=== PATIENT | male | born 1955 | race Caucasian/White ===

== ENCOUNTER 2016-06-09 21:20 | Day surgery (SDC) | payer BC ==
[~2016-06-09] VITALS: Ht 195.6 cm; Wt 109.0 kg
[~2016-06-09 21:20] MED LIST: ASPI-586 PO; DOXA4TAB PO; DOXA4TAB2 PO; FENO145T20 PO; GLIP10TA13 PO; HYDR-757 PO; LIRA0.6P SQ; LIRA0.6P3 SQ; LISI40TA PO; METF1000 PO; METF500T4 PO; MULT-35 PO; PHEN28OI6 RC; PRAV40TA2 PO; TRAM1TAB7 PO
[2016-06-09 21:30] VITALS: BP 124/73
[2016-06-09] MEDS ORDERED: ENOXAPARIN 40 MG/0.4 ML (LOVENOX) SYR SC ONE (22:45)
[2016-06-09] MEDS ORDERED: NS IV 1000 ML 1,000 ML IV SCH (23:00)
[2016-06-10] VITALS (9 sets, daily range): BP systolic 99–127; BP diastolic 57–77
[2016-06-10] MEDS ORDERED: ACETAMINOPHEN 325 MG TABLET/CAPLET (TYLENOL) PO PRN (01:15)
[2016-06-10] MEDS ORDERED: TEMAZEPAM 15 MG (RESTORIL) CAP PO PRN (01:15)
[2016-06-10] MEDS ORDERED: BENZONATATE 100 MG (TESSALON) CAPSULE PO PRN ×2 (01:15→10:15)
[2016-06-10] MEDS ORDERED: PATIENT MAY USE OWN MEDS, ALL MC SCH (01:15)
[2016-06-10 03:52] LABS: BASOPHILS % (AUTO) 1 % (0-10); EOSINOPHILS # (AUTO) 0.2 10^3/uL (0.0-0.3); EOSINOPHILS % (AUTO) 3 % (0-10); LYMPHOCYTES # (AUTO) 1.5 X 10^3 (1.0-4.0); LYMPHOCYTES % (AUTO) 24 % (12-44); MEAN CORPUSCULAR HEMOGLOBIN 28 PG (25-34); MEAN CORPUSCULAR HGB CONC 34 G/DL (32-36); MEAN CORPUSCULAR VOLUME 83 FL (80-99); MEAN PLATELET VOLUME 13.2 FL (7.4-10.4); MONOCYTES # (AUTO) 0.6 X 10^3 (0.0-1.0); MONOCYTES % (AUTO) 10 % (0-12); NEUTROPHILS # (AUTO) 3.9 X 10^3 (1.8-7.8); NEUTROPHILS % (AUTO) 62 % (42-75); PLATELET COUNT 138 10^3/uL (130-400); RED BLOOD COUNT 5.13 10^6/uL (4.35-5.85); RED CELL DISTRIBUTION WIDTH 13.5 % (10.0-14.5); WHITE BLOOD COUNT 6.3 10^3/uL (4.3-11.0)
[2016-06-10 04:12] LABS: ALANINE AMINOTRANSFERASE 20 U/L (0-55); ALBUMIN 3.9 G/DL (3.2-4.5); ANION GAP 10 MMOL/L (5-14); ASPARTATE AMINO TRANSFERASE 19 U/L (5-34); BILIRUBIN,TOTAL 0.3 MG/DL (0.1-1.0); BLOOD UREA NITROGEN 18 MG/DL (7-18); BUN/CREATININE RATIO 18; CALCIUM 9.3 MG/DL (8.5-10.1); CARBON DIOXIDE 21 MMOL/L (21-32); CHLORIDE 109 MMOL/L (98-107); CHOLESTEROL 111 MG/DL (< 200); CREATININE SERUM 0.98 MG/DL (0.60-1.30); DIRECT LDL 62 MG/DL (1-129); GFR ESTIMATED > 60; GLUCOSE 125 MG/DL (70-105); MAGNESIUM 1.6 MG/DL (1.8-2.4); POTASSIUM 4.5 MMOL/L (3.6-5.0); SODIUM 140 MMOL/L (135-145); TOTAL PROTEIN 6.5 G/DL (6.4-8.2); TRIGLYCERIDES 202 MG/DL (<150); VLDL CHOLESTEROL 40 MG/DL (5-40)
[2016-06-10 04:32] LABS: THYROID STIMULATING HORMONE 2.77 UIU/ML (0.35-4.94)
[2016-06-10] MEDS: inSUlin (REGULAR) HUMAN 1 UNIT/0.01 ML (CHARGE PER UNIT) SC SCH ×3 (05:03→16:00)
[2016-06-10] MEDS ORDERED: BENZ-13 PO (06:34)
[2016-06-10] MEDS ORDERED: ASPI-586 PO (06:34)
[2016-06-10] MEDS ORDERED: metFORMIN 500 MG (GLUCOPHAGE) TAB PO SCH ×2 (07:00→17:00)
[2016-06-10] MEDS ORDERED: doxAzosin 4 MG (CARDURA) TAB PO SCH ×2 (09:00)
[2016-06-10] MEDS ORDERED: lisINopril 20 MG (ZESTRIL) TAB PO SCH (09:00)
[2016-06-10] MEDS ORDERED: LISINOPRIL 40 MG TAB PO SCH (09:00)
[2016-06-10] MEDS ORDERED: glipiZIDE 5 MG (GLUCOTROL) TAB PO ONE (09:00)
--- NOTE | 2016-06-10 11:24 | Cardiology History & Physical ---
HPI-Cardiology Cardiology H&P Date of Admission Primary Care Physician JAYDEN Shahid Attending Physician Tess Lincoln MD FACP [facility] Consulting Physician ANTHONY CC: Chest and jaw discomfort HPI: 61 yo man with multiple cor risk factors who had an episode of bilat jaw discomfort and some chest tightness lasting 35-40 min yesterday. Has had 3-4 such episodes in the past one year. These are not related to exertion. Chest discomfort does not radiate other than that described above. It is sometimes associated with cold sweats. Discomfort in chest is mild but jaw discomfort was mod to severe. These do not have any particular aggravating or relieving factors. He went to [place] yesterday where there was concern regarding ACS and he was transferred to this hosp. Denies leg swelling or syncope Review of Systems-Cardiology Review of Systems Constitutional: No malaise, No tiredness, No weight loss, No weight gain Eyes: No vision change Ears/Nose/Throat: chronic hearing loss, No ear discharge, No nasal drainage, No recent hearing loss Respiratory: As described under HPI, No shortness of breath, No SOB with excertion Cardiovascular: As described under HPI Gastrointestinal: No constipation, No diarrhea, No nausea, No vomiting Genitourinary: No dysuria, No hematuria, No urine frequency changes Musculoskeletal: back pain Skin: No rash, No ulcerations Psychiatric/Neurological: No focal weakness, No seizure, No syncope Hematologic: No bleeding abnormalities [id number] Hx Patient Social History Alcohol Use: Denies Use Recreational Drug Use: No Smoking Status: Former Smoker Recent Foreign Travel: No Recent Infectious Disease Expo: No Physical Abuse Screen: No Sexual Abuse: No Immunizations Up To Date Date of Pneumonia Vaccine: Jan 04, 2014 Date of Influenza Vaccine: Dec 20, 2015 Past Medical History PMH As described under Assessment. Family Medical History Family History: Congenital heart disease G8 SISTER IN CHILDBIRTH 19 MOTHER Diabetes mellitus G8 SISTER Hypertension G8 SISTER LUNG CANCER 19 FATHER Allergies and Home Medications Allergies Coded Allergies: codeine (Verified Allergy, Intermediate, CONFUSION, 01/05/16) Home Medications Aspirin 81 Mg Tablet.dr, 81 MG PO HS, (Reported) Benzonatate 100 Mg Capsule, 100 MG PO TID PRN for COUGH, (Reported) Doxazosin Mesylate 4 Mg Tablet, 4 MG PO DAILY, (Reported) Fenofibrate Nanocrystallized 145 Mg Tablet, 145 MG PO DAILY, (Reported) Glipizide 10 Mg Tablet, 10 MG PO BID, (Reported) Liraglutide 0.6 Mg/0.1 Ml Pen.injctr, 1.8 MG SQ HS, (Reported) Lisinopril 40 Mg Tablet, 40 MG PO BID, (Reported) Metformin HCl 500 Mg Tablet, 500 MG PO BID, (Reported) Multivitamin 1 Each Tablet, 1 EACH PO DAILY, (Reported) Phenyleph/Mineral Oil/Petrolat 28 Gm Oint.appl, RC TID PRN for HEMORRHOIDS, ( Reported) Pravastatin Sodium 40 Mg Tablet, 40 MG PO HS, (Reported) TAKES 1 & 1/2 OF A (40 MG) TABLET Physical Exam-Cardiology Physical Exam Vital Signs/I&O Vital Sign - Last 12Hours 06/10/16 06/10/16 06/10/16 06/10/16 00:00 01:50 04:00 07:00 Temp 98.2 98.6 Pulse 60 66 62 65 Resp 15 16 B/P (MAP) 100/57 107/77 Pulse Ox 92 97 O2 Delivery Room Air Room Air 06/10/16 06/10/16 08:25 09:00 Temp 97.6 Pulse Ox 96 O2 Delivery Room Air Capillary Refill : Constitutional: AAO x 3, well-developed, well-nourished HEENT: oral hygience is good, No xanthelasmas are seen Neck: No carotid bruit, carotid pulses are 2 + bilaterally, with good upstrokes Respiratory: No accessory muscle use, lungs clear to percussion, lungs clear to auscultation Cardiovascular: regular rate-rhythm, S1 and S2, systolic murmur (faint MATT at card base) Gastrointestinal: No tender, soft, No guarding, No rebound, audible bowel sounds Extremities: No clubbing, No cyanosis, No significant edema Neurologic/Psychiatric: oriented x 3, grossly intact, power is 5/5 both on sides Skin: No rash on exposed areas, No ulcerations on exposed areas Data Review Labs Laboratory Tests 06/09/16 22:50: Troponin I < 0.30 06/10/16 03:20: White Blood Count 6.3, Red Blood Count 5.13, Hemoglobin 14.5, Hematocrit 43, Mean Corpuscular Volume 83, Mean Corpuscular Hemoglobin 28, Mean Corpuscular Hemoglobin Concent 34, Red Cell Distribution Width 13.5, Platelet Count 138, Mean Platelet Volume 13.2H, Neutrophils (%) (Auto) 62, Lymphocytes (%) (Auto) 24 , Monocytes (%) (Auto) 10, Eosinophils (%) (Auto) 3, Basophils (%) (Auto) 1, Neutrophils # (Auto) 3.9, Lymphocytes # (Auto) 1.5, Monocytes # (Auto) 0.6, Eosinophils # (Auto) 0.2, Basophils # (Auto) 0.0, Sodium Level 140, Potassium Level 4.5, Chloride Level 109H, Carbon Dioxide Level 21, Anion Gap 10, Blood Urea Nitrogen 18, Creatinine 0.98, Estimat Glomerular Filtration Rate > 60, BUN/ Creatinine Ratio 18, Glucose Level 125H, Calcium Level 9.3, Magnesium Level 1.6L , Total Bilirubin 0.3, Aspartate Amino Transf (AST/SGOT) 19, Alanine Aminotransferase (ALT/SGPT) 20, Alkaline Phosphatase 52, Total Protein 6.5, Albumin 3.9, Triglycerides Level 202H, Cholesterol Level 111, LDL Cholesterol Direct 62, VLDL Cholesterol 40, HDL Cholesterol 20L, Thyroid Stimulating Hormone (TSH) 2.77 06/10/16 10:56: Glucometer 152H Laboratory Tests 06/10/16 03:20 A/P-Cardiology Assessment/Admission Diagnosis * Chest discomfort suggestive of unstable angina * DM II * Hypertension * Hyperlipidemia * Elevated BMI of approx 29 * History of tobacco use (quit in 1991) * Radical prostatectomy in 2015 for prostate, followed by Dr King Discussion and Recomendations * Given symptoms of unstable angina in the presence of multiple risk factors, card cath appear appropriate * I discussed with him the rationale and risks and benefits and alternatives and potential complications of card cath and possible ad hoc cor intervention. He understands and provides informed consent * Further recs to be based on results of cath * Cor risk factor modification reviewed and recommended. Questions answered Clinical Quality Measures DVT/VTE Risk/Contraindication: Risk Factor Score Per Nursin RFS Level Per Nursing on Admit: 2=Moderate TESS LINCOLN MD FACP [facility] Jun 10, 2016 11:24
[2016-06-10] MEDS ORDERED: LIDOCAINE 1% INJ 20 ML (XYLOCAINE) VIAL ONE (12:10)
[2016-06-10] MEDS ORDERED: HEParin (CATH LAB) 2,000 ML IV ONE (12:10)
[2016-06-10] MEDS ORDERED: NITROGLYCERIN DRIP 25 MG/D5W 0 ML IV ONE (12:10)
[2016-06-10] MEDS ORDERED: MIDAZOLAM 5 MG/5 ML (VERSED) VIAL ONE (12:10)
[2016-06-10] MEDS ORDERED: diphenhydrAMINE 50 MG/ML INJ (BENADRYL) ONE (12:10)
[2016-06-10] MEDS ORDERED: NS IV 1000 ML 0 ML ONE (12:10)
[2016-06-10] MEDS ORDERED: fentaNYL INJECTION 100 MCG/2 ML AMP ONE (12:10)
[2016-06-10] MEDS ORDERED: NS IV 1000 ML 1,000 ML IV SCH (13:35)
--- NOTE | 2016-06-10 13:35 | Cardiac Procedure Note-CS/ASA ---
Pre-Procedure Note Pre-Op Procedure Note H&P Reviewed The H&P was reviewed, patient examined and no changes noted. Date H&P Reviewed: Jun 10, 2016 Time H&P Reviewed: 11:30 Conscious Sedation Pre-Proced Time Reviewed: 11:30 ASA Class: 3 Airway Mallampati Classification: ([place] appropriate class) I. II. III, IV Lungs Heart ASA score ASA 1: a normal healthy patient ASA 2: a patient with a mild systemic disease (mid diabetes, controlled hypertension, obesity ASA 3: a patient with a severe systemic disease that limits activity (angina , COPD, prior Myocardial infarction) ASA 4: a patient with an incapacitating disease that is a constant threat to life (CHF, renal failure) ASA 5: a moribund patient not expected to survive 24 hrs. (ruptured aneurysm) ASA 6: a declared brain patient whose organs are being harvested. For emergent operations, add the letter E after the classification Grade 3 Note The patient is an appropriate candidate to undergo the planned procedure, sedation, and anesthesia. The patient immediately re-assessed prior to indication. WILLIAM BOLTON MD FACP [facility] Jun 10, 2016 13:35
[2016-06-10] MEDS ORDERED: ASPI-999 PO (13:41)
[2016-06-10] MEDS ORDERED: LISI40TA PO (13:41)
--- NOTE | 2016-06-10 13:42 | Discharge Inst-Post CATH ---
Discharge Inst-CATH Post Cardiac Cath D/C Inst Follow Up/Plan Follow up with Dr Lincoln in 4 weeks CARDIAC CATH DISCHARGE INSTRUCTIONS *Hold Metformin for 48 hours post heart cath. ACTIVITY * Go Home directly and rest. * Limit activity of the leg (or wrist if it was used) for 7 days including aerobics, swimming, jogging, bicycling, etc. * Restrict stair-climbing for 7 days if possible, if not, climb up with your non -cath leg, then bring together on the same step. * Avoid lifting, pushing, pulling or excessive movement of the affected extremity for 7 days. * Customary sexual activity may be resumed after 2 days-use caution not to use a position that strains or causes pain to the affected extremity. * No driving for 24 hours. * NO SMOKING. * Avoid straining for bowel movements for 7 days. * Gentle walking on level ground is allowed. * Returning to work will depend on the type of procedure and the results. Your doctor will discuss this with you. CALL YOUR DOCTOR FOR ANY OF THE FOLLOWING: *If bleeding from the puncture site occurs- Apply gentle pressure to site with clean cloth and call your doctor or EMS. * If a knot or lump forms under the skin, increases in size, or causes pain. * If bruising appears to be worsening or moving further down your leg instead of disappearing. * Temperature above 101 F. CARE OF YOUR GROIN INCISION; * Bruising or purple discoloration of the skin near the puncture site is common. * You may shower only, no bathtub bathing for 5 days. Be careful to avoid slipping as your leg may feel stiff. * If a closure device was used on your femoral artery, please see the attached guide regarding care of the device and your leg. * REMOVE the dressing from your groin the next day after your procedure in the shower. CARE OF YOUR WRIST INCISION; * Bruising or purple discoloration of the skin near the puncture site is common. * You may shower. * DO NOT submerge wrist. * Remove dressing in 24 hours. WILLIAM LINCOLN MD FACP [facility] Jun 10, 2016 13:42
--- NOTE | 2016-06-10 13:43 | Discharge Inst-Cardiology ---
Discharge Inst-Cardiac Discharge Medications New Medications: Aspirin (Aspirin) 81 Mg Tab.chew 81 MG PO DAILY, #90 TAB 3 Refills Lisinopril (Lisinopril) 40 Mg Tablet 40 MG PO DAILY, #90 TAB 3 Refills Continued Medications: Benzonatate (Tessalon Perle) 100 Mg Capsule 100 MG PO TID PRN for COUGH, CAP Doxazosin Mesylate (Doxazosin Mesylate) 4 Mg Tablet 4 MG PO DAILY Fenofibrate Nanocrystallized (Fenofibrate) 145 Mg Tablet 145 MG PO DAILY, TAB Glipizide (Glipizide) 10 Mg Tablet 10 MG PO BID, TAB Liraglutide (Victoza 3-Tawanda) 0.6 Mg/0.1 Ml Pen.injctr 1.8 MG SQ HS Multivitamin (Daily Multiple Vitamin) 1 Each Tablet 1 EACH PO DAILY, TAB Phenyleph/Mineral Oil/Petrolat (Preparation H Ointment) 28 Gm Oint.appl RC TID PRN for HEMORRHOIDS, TUBE Pravastatin Sodium (Pravastatin Sodium) 40 Mg Tablet 40 MG PO HS, TAB TAKES 1 & 1/2 OF A (40 MG) TABLET Discontinued Medications: Aspirin (Aspir 81) 81 Mg Tablet.dr 81 MG PO HS, TAB Lisinopril (Lisinopril) 40 Mg Tablet 40 MG PO BID, TAB Metformin HCl (Metformin HCl) 500 Mg Tablet 500 MG PO BID Patient Instructions Patient Instructions: Hold METFORMIN until the evening of 06/12/16, then start in previous home dose WILLIAM BOLTON MD FACP [facility] Jun 10, 2016 13:43
[2016-06-10] MEDS ORDERED: PATIENT MAY USE OWN MEDS, ALL PO SCH (13:45)
--- NOTE | 2016-06-10 13:46 | Cardiology Discharge Summary ---
Diagnosis/Chief Complaint Date of Admission Jun 09, 2016 at 21:19 Date of Discharge 06/10/16 Admission Diagnosis * Chest discomfort suggestive of unstable angina * DM II * Hypertension * Hyperlipidemia * Elevated BMI of approx 29 * History of tobacco use (quit in 1991) * Radical prostatectomy in 2015 for prostate, followed by Dr King Final/Discharge Diagnosis * Chest and jaw discomfort, non-cardiac, currently stable * Card cath of 06/10/16 showed mild CAD, low-normal LVEDP, LVEF 60-65%, no significant MR, no evidence of thoracic aortic dissection or aneurysm * DM II * Hypertension * Hyperlipidemia * Elevated BMI of approx 29 * History of tobacco use (quit in 1991) * Radical prostatectomy in 2016 for prostate, followed by Dr King Chief Complaint/HPI Chief Complaint/HPI CC: Chest and jaw discomfort HPI: 61 yo man with multiple cor risk factors who had an episode of bilat jaw discomfort and some chest tightness lasting 35-40 min yesterday. Has had 3-4 such episodes in the past one year. These are not related to exertion. Chest discomfort does not radiate other than that described above. It is sometimes associated with cold sweats. Discomfort in chest is mild but jaw discomfort was mod to severe. These do not have any particular aggravating or relieving factors. He went to [place] yesterday where there was concern regarding ACS and he was transferred to this hosp. Denies leg swelling or syncope Discharge Summary Procedures Echo and card cath on 06/10/16 Hospital Course Pending Labs Laboratory Tests 06/10/16 10:56: Glucometer 152 Discussion & Recommendations Dicharge Diet: ADA Diet (1800 kCal) Home Medications Reviewed patient Home Medication Reconciliation Form Discharge Home Medications: Reviewed and agree with Discharge Medication list on patient's Discharge Instruction sheet Instructions to patient/family Follow up with Dr Lincoln in 4 weeks Clinical Quality Measures DVT/VTE Risk/Contraindication: Risk Factor Score Per Nursin RFS Level Per Nursing on Admit: 2=Moderate WILLIAM LINCOLN MD FACP [facility]AC [facility] Jun 10, 2016 13:46
[2016-06-10] MEDS ORDERED: ASPIRIN E.C. 81 MG (ECOTRIN) TAB PO SCH (21:00)
[2016-06-10] MEDS ORDERED: ASPIRIN 81 MG CHEW (CHILDREN'S ASA) PO SCH (21:00)
[2016-06-10] MEDS ORDERED: ENOXAPARIN 40 MG/0.4 ML (LOVENOX) SYR SC SCH (21:00)
--- NOTE | 2016-06-11 12:57 | ECHOCARDIOGRAPHY REPORT ---
PROCEDURE PHYSICIAN: WILLIAM LINCOLN DATE OF PROCEDURE: 06/10/2016 TWO DIMENSIONAL ECHOCARDIOGRAM REPORT PRIMARY PHYSICIAN: JAYDEN Nash OTHER PHYSICIAN: REFERRING PHYSICIAN: ORDERING PHYSICIAN: Dr. Lincoln INDICATION FOR THE PROCEDURE: Chest pain. MEASUREMENTS DERIVED VALUES LV DIAMETER (LAX) NORMALS NORMALS Diastolic 5.3 (3.6-5.2) Eject. Fract. (60%+/-6%) Systolic (2.3-3.9) Diastolic Vol. % Shortening (0.22-0.42) Systolic Vol. Aortic Root 3.7 IVS THICKNESS Diastolic 1.1 (0.6-1.1) LVPW THICKNESS Diastolic 1. (0.6-1.1) LA DIAMETER Systolic 3.8 (2.1-3.7) DESCRIPTION: Two-dimensional echocardiography shows normal global left ventricular systolic function without any distinct regional wall motion abnormality. The aortic, mitral and tricuspid valve leaflets show good leaflet excursion. Doppler imaging shows trivial tricuspid regurgitation. Pulmonary artery systolic pressure is estimated to be approximately 25 mmHg. There is no Doppler evidence of any significant valvular stenosis. Mitral inflow is suggestive of grade I diastolic dysfunction of the left ventricle. There is no evidence of any significant intracardiac shunt on this transthoracic echocardiographic study. Inferior vena cava is of normal size and exhibits normal inspiratory collapse. CONCLUSION: 1. Normal global left ventricular systolic function and ejection fraction of approximately 65%. 2. Trivial tricuspid regurgitation. 3. Pulmonary artery systolic pressure is estimated to be approximately 25 mmHg. 4. No evidence of any significant valvular stenosis. 5. Mild diastolic dysfunction of the left ventricle is suggested on this study. Job ID: [id number] Dictated Date: 06/10/2016 11:48:18 Manager Medicare Marketing Date: 06/11/2016 12:51:28 / kisha
--- NOTE | 2016-06-11 14:01 | CARDIAC CATHETERIZATION ---
PROCEDURE PHYSICIAN: WILLIAM BOLTON DATE OF PROCEDURE: 06/10/2016 Evert Quintana is a 61-year-old gentleman with multiple coronary disease risk factors who was hospitalized with symptoms of unstable angina. Cardiac catheterization was carried out after having obtained an informed consent. He was brought to the cardiac catheterization laboratory in a fasting state. The right groin was prepared and draped in the usual sterile fashion. 1% lidocaine was used for local anesthesia. Modified Seldinger technique was used to advance a 6-[place] sheath in the right femoral artery. 5-[place] JL4 catheter was used for left coronary angiography. A 5-[place] JR 4 catheter was used for right coronary angiography. A 5-[place] pigtail catheter was used for left heart catheterization, left ventricular angiography. A 5-[place] pigtail catheter was pulled back to the aortic arch and aortic arch angiography was performed. The catheter was removed. Angiography of the right femoral artery had been carried out through the sheath at the time of sheath insertion. At the end of the procedure, Mynx was used to achieve hemostasis. He tolerated the procedure well. HEMODYNAMICS: Left ventricular end diastolic pressure following coronary angiography was 4 mmHg. There was no significant pressure gradient on pullback across the aortic valve. Ascending aortic pressure 96/58 with a mean of 75 mmHg. LEFT VENTRICULAR ANGIOGRAPHY: Ventricular angiography was carried out in the right anterior oblique projection. Global left systolic function is normal. No distinct regional wall motion abnormalities are seen. Left ventricular ejection fraction is approximately 60%. There does not appear to be significant mitral regurgitation. AORTIC ARCH ANGIOGRAPHY: Aortic arch angiography did not indicate any significant thoracic aortic aneurysm or dissection. The neck arteries, to the extent seen, do not exhibit significant disease. CORONARY ANGIOGRAPHY: The left main coronary artery, left anterior descending artery, left circumflex artery are angiographically normal. Right coronary artery is dominant and has mild plaques. CONCLUSIONS: 1. Angiographically mild coronary artery disease. 2. Normal global left ventricular systolic function with an ejection fraction of approximately 60%. 3. Low normal left ventricular end diastolic pressure. 4. No significant mitral regurgitation. DISCUSSION AND RECOMMENDATIONS: Based on the results of this study, chest and jaw discomfort does not appear to have been of cardiac origin. Risk factor modification is advised. Continuing outpatient follow-up is advised. Further follow-up is advised for evaluation of noncardiac chest and jaw discomfort with his family physician. Job ID: [id number] Dictated Date: 06/10/2016 13:33:30 Clinical Geneticist Date: 06/11/2016 13:53:11 / kisha
--- OUTSIDE RECORDS SUMMARY | 2016-06-27 11:31 | XMS REPORT | Continuity of Care Document ---
Author Author [facility] Organization [facility] Address Unknown Phone Unavailable Care Team Providers Care Associate Dean Of Women Name Role Phone PCP Unavailable Source Comments Some departments are not documenting in the electronic medical record. If you do not see the information that you expected, contact Release of Information in the Health Information Management department at [phone] for further assistance in locating additional records.[facility] Active Allergies and Adverse Reactions Allergen Noted Date Severity Reactions Comments Codeine 12/07/2015 Low SEE COMMENTS confusion Current Medications Prescription Sig. Disp. Refills Start End Date Status Date traMADol/acetaminophen(+) Take 1 Tab by mouth every Active (ULTRACET) 37.5/325 mg 4 hours as needed for tablet Pain. HYDROcodone/acetaminophen Take 1 Tab by mouth every Active (NORCO) 5-325 mg tablet 4 hours as needed for Pain fenofibrate Take 145 mg by mouth Active nanocrystallized (TRICOR) daily. Take with food. 145 mg tablet LISINOPRIL (PRINIVIL PO) Take 40 mg by mouth Active daily. doxazosin XL(+) (CARDURA Take 4 mg by mouth daily Active XL) 4 mg tablet with breakfast. zinc sulfate 220 mg (50 Take 220 mg by mouth Active mg elemental zinc) daily. capsule liraglutide(+) (VICTOZA Inject 0.6 mg under the Active 2-ROBYN) 0.6 mg/0.1 mL (18 skin daily. mg/3 mL) pnij metFORMIN-ER(+) Take 1,000 mg by mouth Active (FORTAMET) 1,000 mg daily with dinner. extended release tablet NEEDLES, DISPOSABLE Use as directed. Active (DISPOSABLE NEEDLES MISC) glipiZIDE (GLUCOTROL) 10 Take 10 mg by mouth twice Active mg tablet daily. blood sugar diagnostic Use 1 Strip as directed Active (BLOOD GLUCOSE TEST) test before meals and at strip bedtime. pravastatin (PRAVACHOL) Take 40 mg by mouth at Active 40 mg tablet bedtime daily. aspirin EC 81 mg tablet Take 81 mg by mouth Active daily. Take with food. vitamins, multi stress Take 1 Tab by mouth Active formula (STRESS 600) tab daily. Active Problems Problem Noted Date Prostate cancer (HCC) 12/07/2015 Overview: Hx of elevated PSA and subsequently underwent a TRUSBx on 10/25/[address] Angela for PSA of 5.2 which demonstrated 5/17 cores + for adenocarcinoma (3+4=7 on L). Negative CTU and Bone scan. Family history of prostate cancer (+) father (dx at age 87y). + ED at baseline without medications in the past. L ast Assessment & Plan: 60yM with hx of DMII, HTN, HLD, PAH, and KIM with recently diagnosed Giovani 3+7 cT2b prostate adenocarcinoma. Had extensive discussion with patient regarding treatment options including RRP, RALP, and XRT. Recommendation was made for RALP with BPLND and (R) NS/(L) WD in [place]. Patient agreeable to proceed with surgery. - To OR for RALP with BPLND and (R) NS/(L) WD in 12/2015 - Patient will need to see Cardiology (Dr. Aparicio) for pre-op clearance. Will need to hold ASA 2 weeks prior and post surgery. Social History Tobacco Use Types Packs/Day Years Used Date Former Smoker Alcohol Use Drinks/Week oz/Week Comments Yes 0 Standard 0.0 drinks or equivalent Last Filed Vital Signs Vital Sign Reading Time Taken Blood Pressure 139/62 12/07/2015 8:40 AM CDT Pulse 81 12/07/2015 8:40 AM CDT Temperature - - Respiratory Rate - - Height 1.854 m (6' 1") 12/07/2015 8:40 AM CDT Weight 113.399 kg (250 lb) 12/07/2015 8:40 AM CDT Body Mass Index 32.99 12/07/2015 8:40 AM CDT Oxygen Saturation - - Plan of Care Health Maintenance Due Date Last Done Comments Hepatitis C Screening 1955 Physical (Comprehensive) 06/05/1963 Exam Pertussis Vaccine 06/05/1967 Tetanus Vaccine 1973 Colorectal Cancer 2006 Screening Shingles Vaccine 2016 Influenza Vaccine 11/17/2016 Results from Last 3 Months Not on file
--- OUTSIDE RECORDS SUMMARY | 2016-07-02 04:31 | XMS REPORT | Continuity of Care Document ---
Author Author [facility] Organization [facility] Address Unknown Phone Unavailable Care Team Providers Care Wireline Supervisor Name Role Phone PCP Unavailable Source Comments Some departments are not documenting in the electronic medical record. If you do not see the information that you expected, contact Release of Information in the Health Information Management department at [phone] for further assistance in locating additional records.[facility] Active Allergies and Adverse Reactions Allergen Noted [...] with BPLND and (R) NS/(L) WD in [place]. Patient agreeable to proceed with surgery. - [...]
== END 2016-06-10 17:30 | disposition home or self-care (01) ==
LOC: DELPENDDIS → ICU 21:20 → CATH 21:20 → 4TH 06-10 15:36 → ICU 06-10 15:36 → DELPENDDIS 06-10 17:00 → CATH 06-10 17:30 → ICU 06-10 17:30 → UNDODISOB 06-10 17:30
PROVIDERS: ATTEND Internal Medicine Cardiovascular Disease
DX: R07.89 Other chest pain (principal); I25.10 Atherosclerotic heart disease of native coronary artery without angina pectoris; E11.9 Type 2 diabetes mellitus without complications; E78.5 Hyperlipidemia, unspecified; I10 Essential (primary) hypertension; Z87.891 Personal history of nicotine dependence; Z79.899 Other long term (current) drug therapy
CPT/HCPCS: 36221; 36415; 80053; 80061; 82962; 83735; 84443; 84484; 85025; 93005; 93306; 93458

== ENCOUNTER 2022-03-29 12:21 | Outpatient (RCR) | payer MEDICARE ==
[~2022-03-29 12:21] MED LIST changes: +ASPI-999 PO; +BENZ100C18 PO; -FENO145T20 PO; +FENO145T26 PO; +HYDR-4226 PO; -HYDR-757 PO; -LISI40TA PO; +LISI40TA9 PO; +METF-397 PO; +METF-399 PO; -METF1000 PO; -METF500T4 PO; -PHEN28OI6 RC; +PHEN28OI9 RC
== END 2022-04-18 | disposition home or self-care (01) ==
LOC: ONC 12:21
PROVIDERS: ATTEND Internal Medicine Hematology & Oncology
DX: C61 Malignant neoplasm of prostate (principal); I10 Essential (primary) hypertension; E11.9 Type 2 diabetes mellitus without complications; E66.9 Obesity, unspecified
CPT/HCPCS: 84153; G0463; 99204

== ENCOUNTER → 2022-08-07 | Outpatient (CLI) | payer MEDICARE, OTHER ==
[~2022-08-07] MED LIST changes: -DOXA4TAB PO; +DOXA4TAB96 PO
== END ==
LOC: CARD 10:04
PROVIDERS: ATTEND Nurse Practitioner Family
DX: I35.8 Other nonrheumatic aortic valve disorders (principal)
CPT/HCPCS: 93306

== ENCOUNTER 2022-08-29 12:37 | Outpatient (RCR) | payer MEDICARE | END 2022-09-15 | disposition home or self-care (01) | LOC: ONC 12:37 | PROVIDERS: ATTEND Internal Medicine Hematology & Oncology | DX: C61 Malignant neoplasm of prostate (principal); I10 Essential (primary) hypertension; E11.9 Type 2 diabetes mellitus without complications; E66.9 Obesity, unspecified; I25.10 Atherosclerotic heart disease of native coronary artery without angina pectoris; E78.2 Mixed hyperlipidemia; I35.8 Other nonrheumatic aortic valve disorders | CPT/HCPCS: 84153 ==